=== PATIENT | male | born 1940 | race Caucasian/White ===

== ENCOUNTER 2017-09-24 11:12 | Observation (INO) ==
[2017-09-24] MEDS ORDERED: ASPIRIN 325 MG TABLET PO STA (11:34)
[2017-09-24] MEDS ORDERED: ENOXAPARIN 100 MG/ML SYRINGE SUBCUT STA (11:34)
[2017-09-24 11:45] LABS: Basophils # 0.1 10*3/uL (0.0-0.2); Basophils % 0.6 % (0.0-0.8); Eosinophils # 0.3 10*3/uL (0.0-0.87); Eosinophils % 3.5 % (0.00-10.9); Hematocrit 42.6 VOL% (42.0-52.0); Hemoglobin 14.2 GM/DL (14.0-18.0); Immature Granulocytes % 0.6 %; Immature Granulocytes Absolute 0.05 #; Mean Corpuscular HGB Conc 33.3 GM/DL (32-36); Mean Corpuscular Hemoglobin 34 PG (27-34); Mean Corpuscular Volume 101.2 FL (87-102); Mean Platelet Volume 9.6 FL (9.6-12.0); Monocytes # 0.8 10*3/uL (0.11-0.8); Monocytes % 8.9 % (1.7-12.7); Neutrophils # 5.5 10*3/uL (1.4-7.4); Neutrophils % 63.4 % (38.7-73.9); Platelet Count 228 T/CUMM (130-400); Red Blood Count 4.21 MC/CUMM (3.8-5.5); Red Cell Distribution Width 12.5 % (9.3-17.3); White Blood Count 8.7 T/CUMM (4-12)
[2017-09-24] MEDS ORDERED: ASPIRIN 325 MG TABLET ONE (12:05)
[2017-09-24] MEDS ORDERED: ENOXAPARIN 80 MG/0.8 ML SYRINGE SUBCUT ONE (12:05)
[2017-09-24 12:12] LABS: Alanine Aminotransferase 9 U/L (16-61); Albumin 3.7 G/DL (3.4-5.0); Alkaline Phosphatase 96 U/L (45-117); Aspartate Amino Transferase 8 U/L (0-37); Bilirubin,Total < 0.39 MG/DL (0.2-1.0); Calcium 8.5 MG/DL (8.5-10.1); Total Protein 6.9 G/DL (6.4-8.3)
[2017-09-24 12:13] LABS: Blood Urea Nitrogen 16 MG/DL (7-18); Glucose 93 MG/DL (74-106); Osmolality,Calculated 275.7 MOS/KG (273-304); Potassium 4.4 MMOL/L (3.5-5.1); Sodium 138 MMOL/L (136-145)
[2017-09-24] MEDS ORDERED: ONDANSETRON 4 MG/2 ML VIAL IV PRN (17:16)
[2017-09-24] MEDS ORDERED: POTASSIUM CHLORIDE RIDER 10 MEQ in PREMIX 1 EACH IV PRN (17:16)
[2017-09-24] MEDS ORDERED: MAGNESIUM SULF RIDER 4 GM in PREMIX 1 EACH IV PRN (17:16)
[2017-09-24] MEDS ORDERED: BUDESONIDE/FORMOTEROL 80-4.5 INHALER 6.9 GM INH PRN (17:16)
[2017-09-24] MEDS ORDERED: MAGNESIUM SULF RIDER 2 GM in PREMIX 1 EACH IV PRN ×2 (17:16)
[2017-09-24] MEDS: MAGNESIUM CHLORIDE 64 MG TABLET PO SCH (21:25)
[2017-09-25] MEDS ORDERED: DIAZEPAM 5 MG TABLET PO ONE (06:00)
[2017-09-25] MEDS ORDERED: diphenhydrAMINE CAP 25 MG CAPSULE PO ONE (06:00)
[2017-09-25] MEDS ORDERED: LIDOCAINE 1% 20 ML VIAL ONE (06:51)
[2017-09-25] MEDS ORDERED: AMIODARONE 200 MG TABLET PO ONE (06:59)
[2017-09-25] MEDS ORDERED: METOPROLOL TARTRATE 25 MG TABLET PO ONE (06:59)
[2017-09-25] MEDS ORDERED: PANTOPRAZOLE 40 MG TABLET PO ONE (07:00)
[2017-09-25] MEDS ORDERED: PITAVASTATIN 2 MG TABLET PO ONE (07:01)
[2017-09-25] MEDS ORDERED: LISINOPRIL 20 MG TABLET PO ONE (07:01)
[2017-09-25] MEDS ORDERED: NITROGLYCERIN DRIP 50 MG/250 ML BOTTLE IV ONE (07:20)
[2017-09-25] MEDS ORDERED: fentaNYL 100 MCG/2 ML VIAL ONE (07:20)
[2017-09-25] MEDS ORDERED: VERAPAMIL 5 MG/2 ML VIAL ONE (07:20)
[2017-09-25] MEDS ORDERED: MIDAZOLAM 2 MG/2 ML VIAL ONE (07:20)
[2017-09-25] MEDS ORDERED: ENOXAPARIN 30 MG/0.3 ML SYRINGE ONE (07:45)
[2017-09-25] MEDS ORDERED: TIROFIBAN 5,000 MCG/100 ML PREMIX IV ONE (08:02)
[2017-09-25] MEDS ORDERED: ASPIRIN 325 MG TABLET ONE (08:02)
[2017-09-25] MEDS ORDERED: diphenhydrAMINE 50 MG/1 ML VIAL ONE (08:10)
[2017-09-25] MEDS: METOPROLOL TARTRATE 25 MG TABLET PO SCH (08:12)
[2017-09-25] MEDS: PANTOPRAZOLE 40 MG TABLET PO SCH (08:12)
[2017-09-25] MEDS: LISINOPRIL 20 MG TABLET PO SCH (08:12)
[2017-09-25] MEDS ORDERED: TIROFIBAN 5,000 MCG/100 ML PREMIX IV SCH (08:12)
[2017-09-25] MEDS: FOLIC ACID 1 MG TABLET PO SCH (08:12)
[2017-09-25] MEDS: AMIODARONE 200 MG TABLET PO SCH (08:12)
[2017-09-25] MEDS: PITAVASTATIN 2 MG TABLET PO SCH (08:12)
[2017-09-25] MEDS: MAGNESIUM CHLORIDE 64 MG TABLET PO SCH ×2 (08:12→20:34)
[2017-09-25] MEDS: CYANOCOBALAMIN 500 MCG TABLET PO SCH (08:13)
[2017-09-25] MEDS: ASCORBIC ACID 500 MG TABLET PO SCH (08:13)
[2017-09-25] MEDS ORDERED: hydrALAZINE 20 MG/1 ML VIAL ONE (08:22)
[2017-09-25] MEDS ORDERED: NITROGLYCERIN SL 0.4 MG TABLET SL PRN (08:53)
[2017-09-25] MEDS ORDERED: ACETAMINOPHEN 325 MG TABLET PO PRN (08:53)
[2017-09-25] MEDS ORDERED: TICAGRELOR 90 MG TABLET ONE (08:54)
[2017-09-25] MEDS ORDERED: SODIUM CHLORIDE 0.9% 1,000 ML IV SCH (09:00)
[2017-09-25] MEDS: ASPIRIN EC 81 MG TABLET PO SCH (09:41)
[2017-09-25] MEDS: TICAGRELOR 90 MG TABLET PO SCH ×2 (09:41→20:34)
[2017-09-25 09:45] LABS: Basophils # 0.1 10*3/uL (0.0-0.2); Basophils % 0.9 % (0.0-0.8); Eosinophils # 0.4 10*3/uL (0.0-0.87); Eosinophils % 5.1 % (0.00-10.9); Hematocrit 43.2 VOL% (42.0-52.0); Hemoglobin 14.3 GM/DL (14.0-18.0); Immature Granulocytes % 0.4 %; Immature Granulocytes Absolute 0.03 #; Lymphocytes # 2.4 10*3/uL (1.4-4.0); Lymphocytes % 30.7 % (21.2-54.2); Mean Corpuscular HGB Conc 33.1 GM/DL (32-36); Mean Corpuscular Hemoglobin 33 PG (27-34); Mean Corpuscular Volume 100.9 FL (87-102); Mean Platelet Volume 9.7 FL (9.6-12.0); Monocytes # 0.7 10*3/uL (0.11-0.8); Monocytes % 8.5 % (1.7-12.7); Neutrophils # 4.3 10*3/uL (1.4-7.4); Neutrophils % 54.4 % (38.7-73.9); Platelet Count 240 T/CUMM (130-400); Red Blood Count 4.28 MC/CUMM (3.8-5.5); Red Cell Distribution Width 12.4 % (9.3-17.3); White Blood Count 7.9 T/CUMM (4-12)
[2017-09-25 09:52] LABS: PT Patient Result 10.5 SECS
[2017-09-25 09:55] LABS: Apearance,Urine CLEAR (Clear); Bilirubin,Urine Negative (Negative); Blood, Urine Negative (Negative); Glucose,Urine (UA) Negative (Negative); Ketones,Urine Negative (Negative); Mucus,Urine Occasional /LPF (Occasional); Nitrite,Urine Negative (Negative); Protein,Urine Negative; RBC,Urine 2 /HPF (0-4); Urine Color Straw (Yellow); Urine Specific Gravity 1.023 (1.001-1.035); Urine Urobilinogen < 2.0 EU/DL (0.2-1.0); WBC,Urine <1 /HPF (0-6)
[2017-09-25 10:35] LABS: Calcium 8.7 MG/DL (8.5-10.1); Potassium 4.7 MMOL/L (3.5-5.1)
[2017-09-25] MEDS ORDERED: HYDROmorphone 2 MG/1 ML VIAL IV PRN (10:38)
[2017-09-25] MEDS: amLODIPine 5 MG TABLET PO SCH (10:57)
[2017-09-26 04:56] LABS: Basophils # 0.1 10*3/uL (0.0-0.2); Basophils % 0.7 % (0.0-0.8); Eosinophils # 0.4 10*3/uL (0.0-0.87); Hematocrit 40.3 VOL% (42.0-52.0); Hemoglobin 13.5 GM/DL (14.0-18.0); Immature Granulocytes % 0.6 %; Immature Granulocytes Absolute 0.05 #; Lymphocytes # 1.9 10*3/uL (1.4-4.0); Lymphocytes % 21.8 % (21.2-54.2); Mean Corpuscular HGB Conc 33.5 GM/DL (32-36); Mean Corpuscular Hemoglobin 33 PG (27-34); Mean Corpuscular Volume 99.5 FL (87-102); Mean Platelet Volume 9.8 FL (9.6-12.0); Monocytes # 0.8 10*3/uL (0.11-0.8); Monocytes % 9.6 % (1.7-12.7); Neutrophils # 5.5 10*3/uL (1.4-7.4); Neutrophils % 62.3 % (38.7-73.9); Platelet Count 211 T/CUMM (130-400); Red Blood Count 4.05 MC/CUMM (3.8-5.5); Red Cell Distribution Width 12.4 % (9.3-17.3); White Blood Count 8.8 T/CUMM (4-12)
[2017-09-26 05:45] LABS: Blood Urea Nitrogen 13 MG/DL (7-18); Calcium 8.4 MG/DL (8.5-10.1); Cholesterol 153 MG/DL (50-200); Glucose 80 MG/DL (74-106); HDL Cholesterol 40 MG/DL (40-60); Osmolality,Calculated 271.8 MOS/KG (273-304); Potassium 4.3 MMOL/L (3.5-5.1); Risk Ratio 3.83; Sodium 137 MMOL/L (136-145); Triglycerides 116 MG/DL (2-150); Troponin I Only < 0.015 NG/ML (0.00-0.045); VLDL CHOLESTEROL 23.2 MG/DL
[2017-09-26 08:13] VITALS: BP 176/77
[2017-09-26] MEDS: LISINOPRIL 20 MG TABLET PO SCH (08:57)
[2017-09-26] MEDS: MAGNESIUM CHLORIDE 64 MG TABLET PO SCH (08:58)
[2017-09-26] MEDS: ASCORBIC ACID 500 MG TABLET PO SCH (08:58)
[2017-09-26] MEDS: CYANOCOBALAMIN 500 MCG TABLET PO SCH (08:58)
[2017-09-26] MEDS: TICAGRELOR 90 MG TABLET PO SCH (08:59)
[2017-09-26] MEDS: METOPROLOL TARTRATE 25 MG TABLET PO SCH (08:59)
[2017-09-26] MEDS: FOLIC ACID 1 MG TABLET PO SCH (08:59)
[2017-09-26] MEDS: PITAVASTATIN 2 MG TABLET PO SCH (08:59)
[2017-09-26] MEDS: PANTOPRAZOLE 40 MG TABLET PO SCH (08:59)
[2017-09-26] MEDS: AMIODARONE 200 MG TABLET PO SCH (08:59)
[2017-09-26] MEDS: amLODIPine 5 MG TABLET PO SCH (08:59)
[2017-09-26] MEDS: ASPIRIN EC 81 MG TABLET PO SCH (08:59)
== END 2017-09-26 10:45 | disposition home or self-care (01) ==
LOC: N.EDINP 11:12 → N.ED 11:12 → N.EDINP 16:30 → N.TELES 16:56
PROVIDERS: ADMIT Internal Medicine Cardiovascular Disease; ATTEND Internal Medicine Cardiovascular Disease
PROC: CLCCHCL (ICD-10-PCS; 2017-09-25 07:45)

== ENCOUNTER 2019-03-31 09:07 | Inpatient (IN) ==
[2019-03-31] MEDS ORDERED: ONDANSETRON 4 MG/2 ML VIAL IV STA (09:40)
[2019-03-31 10:24] LABS: Basophils # 0.1 10*3/uL (0.0-0.2); Basophils % 0.8 % (0.0-0.8); Eosinophils # 0.5 10*3/uL (0.0-0.87); Eosinophils % 6.3 % (0.00-10.9); Hematocrit 43.4 VOL% (42.0-52.0); Hemoglobin 13.7 GM/DL (14.0-18.0); Immature Granulocytes % 1.3 %; Immature Granulocytes Absolute 0.09 #; Lymphocytes % 27.3 % (21.2-54.2); Mean Corpuscular HGB Conc 31.6 GM/DL (32-36); Mean Corpuscular Volume 100.2 FL (87-102); Mean Platelet Volume 9.2 FL (9.6-12.0); Monocytes % 11.4 % (1.7-12.7); Neutrophils % 52.9 % (38.7-73.9); Platelet Count 185 T/CUMM (130-400); Red Blood Count 4.33 MC/CUMM (3.8-5.5); Red Cell Distribution Width 15.4 % (9.3-17.3); White Blood Count 7.2 T/CUMM (4-12)
[2019-03-31 10:51] LABS: Albumin 3.8 G/DL (3.4-5.0); Bilirubin,Total 0.8 MG/DL (0.2-1.0); Calcium 9.1 MG/DL (8.5-10.1); Osmolality,Calculated 269.2 MOS/KG (273-304); Total Protein 7.4 G/DL (6.4-8.3)
[2019-03-31] MEDS ORDERED: ACETAMINOPHEN 325 MG TABLET PO PRN (11:53)
[2019-03-31] MEDS ORDERED: ONDANSETRON 4 MG/2 ML VIAL IV PRN (11:53)
[2019-03-31 12:50] LABS: Apearance,Urine CLEAR (Clear); Bilirubin,Urine Negative (Negative); Blood, Urine Negative (Negative); Glucose,Urine (UA) Negative (Negative); Ketones,Urine 20 mg/dL (Negative); Nitrite,Urine Negative (Negative); Protein,Urine Negative; RBC,Urine 2 /HPF (0-4); Squamous Epithelial Cell,Urine Occasional /HPF (0-10); Urine Color Yellow (Yellow); Urine Urobilinogen < 2.0 EU/DL (0.2-1.0); WBC,Urine 2 /HPF (0-6)
[2019-03-31] MEDS ORDERED: LOTION (LUBRIDERM) 177 ML BOTTLE TOP PRN (16:53)
[2019-03-31] MEDS ORDERED: LOTION (KERI) 236 ML BOTTLE TOP PRN (17:30)
[2019-03-31] MEDS: PIMECROLIMUS 1% CREAM 30 GM TUBE TOP SCH (21:00)
[2019-03-31] MEDS: CLOPIDOGREL 75 MG TABLET PO SCH (23:26)
[2019-04-01 05:11] LABS: Basophils % 0.5 % (0.0-0.8); Eosinophils # 0.6 10*3/uL (0.0-0.87); Eosinophils % 9.5 % (0.00-10.9); Hematocrit 37.2 VOL% (42.0-52.0); Immature Granulocytes % 1.1 %; Immature Granulocytes Absolute 0.07 #; Lymphocytes # 2.1 10*3/uL (1.4-4.0); Lymphocytes % 32.6 % (21.2-54.2); Mean Corpuscular HGB Conc 31.5 GM/DL (32-36); Mean Corpuscular Volume 100.3 FL (87-102); Mean Platelet Volume 9.3 FL (9.6-12.0); Monocytes % 10.5 % (1.7-12.7); Neutrophils % 45.8 % (38.7-73.9); Platelet Count 169 T/CUMM (130-400); Red Blood Count 3.71 MC/CUMM (3.8-5.5); Red Cell Distribution Width 15.4 % (9.3-17.3); White Blood Count 6.4 T/CUMM (4-12)
[2019-04-01 05:14] LABS: Hemoglobin 11.7 GM/DL (14.0-18.0)
[2019-04-01 05:20] LABS: Calcium 8.5 MG/DL (8.5-10.1); Osmolality,Calculated 273.8 MOS/KG (273-304); Thyroid Stimulating Hormone 2.54 uIU/ml (0.358-3.74)
[2019-04-01] MEDS: diphenhydrAMINE CAP 25 MG CAPSULE PO PRN ×2 (09:53→20:25)
[2019-04-01] MEDS: PANTOPRAZOLE 40 MG TABLET PO SCH (09:53)
[2019-04-01] MEDS: PIMECROLIMUS 1% CREAM 30 GM TUBE TOP SCH ×2 (09:54→20:26)
[2019-04-01] MEDS: FAMOTIDINE 20 MG TABLET PO SCH ×2 (14:13→20:25)
[2019-04-01] MEDS: hydrOXYzine HCL 25 MG TABLET PO SCH ×2 (14:13→19:34)
[2019-04-01 15:43] LABS: Troponin I < 0.015 NG/ML (0.00-0.045)
[2019-04-01] MEDS: CLOPIDOGREL 75 MG TABLET PO SCH (18:47)
[2019-04-01] MEDS: BUDESONIDE 0.5 MG/2 ML NEB RESP TX SCH (19:05)
[2019-04-01 19:36] LABS: Troponin I < 0.015 NG/ML (0.00-0.045)
[2019-04-01] MEDS: MAGNESIUM CHLORIDE 64 MG TABLET PO SCH (20:25)
[2019-04-02] MEDS: hydrOXYzine HCL 25 MG TABLET PO SCH ×3 (02:44→18:36)
[2019-04-02 05:47] LABS: Basophils # 0.1 10*3/uL (0.0-0.2); Eosinophils # 0.5 10*3/uL (0.0-0.87); Eosinophils % 8.6 % (0.00-10.9); Hemoglobin 12.4 GM/DL (14.0-18.0); Immature Granulocytes % 1.6 %; Lymphocytes % 32.5 % (21.2-54.2); Mean Corpuscular HGB Conc 32.6 GM/DL (32-36); Mean Corpuscular Volume 100.3 FL (87-102); Mean Platelet Volume 9.5 FL (9.6-12.0); Monocytes % 11.2 % (1.7-12.7); Neutrophils % 45.1 % (38.7-73.9); Platelet Count 164 T/CUMM (130-400); Red Blood Count 3.79 MC/CUMM (3.8-5.5); Red Cell Distribution Width 15.3 % (9.3-17.3); White Blood Count 6.2 T/CUMM (4-12)
[2019-04-02 06:05] LABS: Calcium 8.6 MG/DL (8.5-10.1); Osmolality,Calculated 281.3 MOS/KG (273-304)
[2019-04-02] MEDS: BUDESONIDE 0.5 MG/2 ML NEB RESP TX SCH ×2 (07:27→19:40)
[2019-04-02] MEDS: FOLIC ACID 1 MG TABLET PO SCH (09:31)
[2019-04-02] MEDS: FAMOTIDINE 20 MG TABLET PO SCH ×2 (09:31→20:09)
[2019-04-02] MEDS: PANTOPRAZOLE 40 MG TABLET PO SCH (09:31)
[2019-04-02] MEDS: MAGNESIUM CHLORIDE 64 MG TABLET PO SCH ×2 (09:31→20:08)
[2019-04-02] MEDS: AMIODARONE 200 MG TABLET PO SCH (09:33)
[2019-04-02] MEDS: MULTIVITAMIN (CENTRUM) TABLET PO SCH (09:33)
[2019-04-02] MEDS: SIMVASTATIN 20 MG TABLET PO SCH (09:33)
[2019-04-02] MEDS: PIMECROLIMUS 1% CREAM 30 GM TUBE TOP SCH ×2 (09:34→20:47)
[2019-04-02] MEDS: MIDODRINE 5 MG TABLET PO SCH ×2 (12:26→20:09)
[2019-04-02] MEDS: diphenhydrAMINE CAP 25 MG CAPSULE PO PRN (16:07)
[2019-04-02] MEDS: CLOPIDOGREL 75 MG TABLET PO SCH (17:50)
[2019-04-03] MEDS: hydrOXYzine HCL 25 MG TABLET PO SCH ×2 (03:02→11:53)
[2019-04-03] MEDS ORDERED: BUDESONIDE 0.5 MG/2 ML NEB RESP TX SCH (07:00)
[2019-04-03] MEDS: diphenhydrAMINE CAP 25 MG CAPSULE PO PRN (07:29)
[2019-04-03] MEDS: FOLIC ACID 1 MG TABLET PO SCH (09:24)
[2019-04-03] MEDS: PANTOPRAZOLE 40 MG TABLET PO SCH (09:24)
[2019-04-03] MEDS: MULTIVITAMIN (CENTRUM) TABLET PO SCH (09:24)
[2019-04-03] MEDS: MIDODRINE 5 MG TABLET PO SCH (09:24)
[2019-04-03] MEDS: PIMECROLIMUS 1% CREAM 30 GM TUBE TOP SCH (09:24)
[2019-04-03] MEDS: MAGNESIUM CHLORIDE 64 MG TABLET PO SCH (09:24)
[2019-04-03] MEDS: AMIODARONE 200 MG TABLET PO SCH (09:24)
[2019-04-03] MEDS: SIMVASTATIN 20 MG TABLET PO SCH (09:24)
[2019-04-03] MEDS: FAMOTIDINE 20 MG TABLET PO SCH (09:24)
[2019-04-03 12:04] VITALS: BP 100/56
[2019-04-03] MEDS ORDERED: MIDODRINE 5 MG TABLET PO SCH (13:30)
[2019-04-03] MEDS ORDERED: CETIRIZINE 10 MG TABLET PO SCH (20:00)
== END 2019-04-03 14:57 | disposition home health service (06) | DRG 312 ==
LOC: N.EDINP 09:07 → N.ED 09:07 → N.4E 12:34
PROVIDERS: ADMIT Internal Medicine; ATTEND Internal Medicine

== ENCOUNTER 2019-12-02 15:28 | Inpatient (IN) ==
[2019-12-02] MEDS ORDERED: MAGNESIUM SULF RIDER 4 GM in PREMIX 1 EACH IV PRN (15:52)
[2019-12-02] MEDS ORDERED: POTASSIUM CHLORIDE 20 MEQ TABLET PO PRN (15:52)
[2019-12-02] MEDS ORDERED: ALUMINUM/MAGNES/SIMETH MAX STR 30 ML UDCUP PO PRN (15:52)
[2019-12-02] MEDS ORDERED: LACTULOSE 20 GM/30 ML UDCUP PO PRN (15:52)
[2019-12-02] MEDS ORDERED: MAGNESIUM SULF RIDER 2 GM in PREMIX 1 EACH IV PRN (15:52)
[2019-12-02] MEDS ORDERED: diphenhydrAMINE CAP 25 MG CAPSULE PO PRN (15:52)
[2019-12-02] MEDS ORDERED: ACETAMINOPHEN 325 MG TABLET PO PRN (15:52)
[2019-12-02] MEDS ORDERED: ZALEPLON 5 MG CAPSULE PO PRN (15:52)
[2019-12-02] MEDS ORDERED: ONDANSETRON 4 MG/2 ML VIAL IV PRN (15:52)
[2019-12-02] MEDS ORDERED: DILTIAZEM 50 MG/10 ML VIAL IV ONE (16:01)
[2019-12-02] MEDS: dilTIAZem Drip 125 MG/125 ML PREMIX IV SCH (18:00)
[2019-12-02 18:36] LABS: Basophils # 0.1 10*3/uL (0.0-0.2); Basophils % 0.5 % (0.0-0.8); Eosinophils # 0.2 10*3/uL (0.0-0.87); Eosinophils % 1.9 % (0.00-10.9); Hematocrit 37.6 VOL% (42.0-52.0); Hemoglobin 12.1 GM/DL (14.0-18.0); Immature Granulocytes % 0.8 %; Immature Granulocytes Absolute 0.09 #; Lymphocytes # 1.8 10*3/uL (1.4-4.0); Lymphocytes % 15.7 % (21.2-54.2); Mean Corpuscular HGB Conc 32.2 GM/DL (32-36); Mean Platelet Volume 9.2 FL (9.6-12.0); Monocytes % 6.7 % (1.7-12.7); Neutrophils % 74.4 % (38.7-73.9); Platelet Count 197 T/CUMM (130-400); Red Blood Count 3.58 MC/CUMM (3.8-5.5); Red Cell Distribution Width 13.8 % (9.3-17.3); White Blood Count 11.2 T/CUMM (4-12)
[2019-12-02 19:02] LABS: Troponin I < 0.015 NG/ML (0.00-0.045)
[2019-12-02 19:09] LABS: Albumin 3.1 G/DL (3.4-5.0); Bilirubin,Total 0.5 MG/DL (0.2-1.0); Calcium 8.6 MG/DL (8.5-10.1); Thyroid Stimulating Hormone 2.25 uIU/ml (0.358-3.74); Total Protein 6.9 G/DL (6.4-8.3)
[2019-12-02] MEDS ORDERED: ENOXAPARIN 40 MG/0.4 ML SYRINGE SUBCUT SCH (21:00)
[2019-12-03 01:00] LABS: Troponin I < 0.015 NG/ML (0.00-0.045)
[2019-12-03 06:38] LABS: Risk Ratio 2.73; VLDL CHOLESTEROL 14.2 MG/DL
[2019-12-03] MEDS ORDERED: NON-FORMULARY MEDICATION (Diphenhydramine Hcl [Benadryl Allergy] 25 MG) PO PRN (08:28)
[2019-12-03] MEDS ORDERED: GABAPENTIN 300 MG CAPSULE PO PRN (08:28)
[2019-12-03] MEDS ORDERED: ALBUTEROL/IPRATROPIUM 3 ML NEB RESP TX PRN (08:28)
[2019-12-03] MEDS ORDERED: NITROGLYCERIN SL 0.4 MG TABLET SL PRN (08:28)
[2019-12-03] MEDS: ASPIRIN EC 81 MG TABLET PO SCH (08:58)
[2019-12-03] MEDS: METOPROLOL TARTRATE 50 MG TABLET PO SCH ×2 (08:59→21:55)
[2019-12-03] MEDS: CETIRIZINE 10 MG TABLET PO SCH (08:59)
[2019-12-03] MEDS: AMIODARONE 200 MG TABLET PO SCH (08:59)
[2019-12-03] MEDS: FOLIC ACID 1 MG TABLET PO SCH (08:59)
[2019-12-03] MEDS ORDERED: APIXABAN 5 MG TABLET PO SCH (09:00)
[2019-12-03] MEDS: PANTOPRAZOLE 40 MG TABLET PO SCH (09:01)
[2019-12-03] MEDS: MAGNESIUM CHLORIDE 64 MG TABLET PO SCH ×2 (09:01→21:54)
[2019-12-03] MEDS: dilTIAZem Drip 125 MG/125 ML PREMIX IV SCH ×2 (09:02→21:55)
[2019-12-03 09:49] LABS: Troponin I < 0.015 NG/ML (0.00-0.045)
[2019-12-03] MEDS: BUDESONIDE 0.5 MG/2 ML NEB RESP TX SCH ×2 (09:51→19:30)
[2019-12-03 12:56] LABS: Apearance,Urine CLEAR (Clear); Bilirubin,Urine Negative (Negative); Blood, Urine Negative (Negative); Glucose,Urine (UA) Negative (Negative); Ketones,Urine 5 mg/dL (Negative); Mucus,Urine Occasional /LPF (Occasional); Nitrite,Urine Negative (Negative); Protein,Urine Negative; RBC,Urine 2 /HPF (0-4); Squamous Epithelial Cell,Urine Occasional /HPF (0-10); Urine Color Yellow (Yellow); Urine Specific Gravity 1.018 (1.001-1.035); WBC,Urine 9 /HPF (0-6)
[2019-12-04 05:02] LABS: Basophils % 0.4 % (0.0-0.8); Eosinophils # 0.5 10*3/uL (0.0-0.87); Eosinophils % 7.2 % (0.00-10.9); Hematocrit 32.8 VOL% (42.0-52.0); Hemoglobin 10.7 GM/DL (14.0-18.0); Immature Granulocytes % 0.6 %; Immature Granulocytes Absolute 0.04 #; Lymphocytes # 1.6 10*3/uL (1.4-4.0); Lymphocytes % 23.7 % (21.2-54.2); Mean Corpuscular HGB Conc 32.6 GM/DL (32-36); Mean Corpuscular Volume 103.8 FL (87-102); Mean Platelet Volume 9.2 FL (9.6-12.0); Monocytes % 11.3 % (1.7-12.7); Neutrophils % 56.8 % (38.7-73.9); Platelet Count 157 T/CUMM (130-400); Red Blood Count 3.16 MC/CUMM (3.8-5.5); Red Cell Distribution Width 14.3 % (9.3-17.3); White Blood Count 6.9 T/CUMM (4-12)
[2019-12-04 05:24] LABS: Calcium 8.5 MG/DL (8.5-10.1)
[2019-12-04] MEDS: BUDESONIDE 0.5 MG/2 ML NEB RESP TX SCH ×2 (07:28→19:28)
[2019-12-04] MEDS: METOPROLOL TARTRATE 50 MG TABLET PO SCH ×2 (08:56→21:29)
[2019-12-04] MEDS: AMIODARONE 200 MG TABLET PO SCH (08:56)
[2019-12-04] MEDS: DILTIAZEM CD 180 MG CAPSULE PO SCH ×2 (08:56→21:29)
[2019-12-04] MEDS: FOLIC ACID 1 MG TABLET PO SCH (08:58)
[2019-12-04] MEDS: MAGNESIUM CHLORIDE 64 MG TABLET PO SCH ×2 (08:58→21:28)
[2019-12-04] MEDS: PANTOPRAZOLE 40 MG TABLET PO SCH (08:58)
[2019-12-04] MEDS: ASPIRIN EC 81 MG TABLET PO SCH (08:58)
[2019-12-04] MEDS: CETIRIZINE 10 MG TABLET PO SCH (08:58)
[2019-12-04] MEDS ORDERED: fentaNYL 100 MCG/2 ML VIAL ONE (10:44)
[2019-12-04] MEDS ORDERED: MIDAZOLAM 2 MG/2 ML VIAL ONE (10:44)
[2019-12-04] MEDS ORDERED: LIDOCAINE 1% 20 ML VIAL ONE (10:44)
[2019-12-04] MEDS ORDERED: HEPARIN/NACL 0.9% 2 UNITS/ML 1,000 ML IV ONE (10:44)
[2019-12-04] MEDS ORDERED: ceFAZolin 1,000 MG VIAL ONE (11:07)
[2019-12-04] MEDS ORDERED: HEPARIN 5,000 UNIT/1 ML VIAL ONE (11:32)
[2019-12-04] MEDS ORDERED: diphenhydrAMINE 50 MG/1 ML VIAL ONE (11:40)
[2019-12-04] MEDS ORDERED: HEPARIN/NACL 0.9% 2 UNITS/ML 500 ML IV ONE ×2 (11:40→12:11)
[2019-12-04] MEDS ORDERED: LORazepam 2 MG/1 ML VIAL IV PRN (14:45)
[2019-12-05 06:31] LABS: Basophils # 0.1 10*3/uL (0.0-0.2); Basophils % 0.7 % (0.0-0.8); Eosinophils # 0.5 10*3/uL (0.0-0.87); Eosinophils % 5.9 % (0.00-10.9); Hematocrit 31.7 VOL% (42.0-52.0); Hemoglobin 10.6 GM/DL (14.0-18.0); Immature Granulocytes % 0.4 %; Immature Granulocytes Absolute 0.03 #; Lymphocytes # 1.6 10*3/uL (1.4-4.0); Lymphocytes % 20.9 % (21.2-54.2); Mean Corpuscular HGB Conc 33.4 GM/DL (32-36); Mean Corpuscular Volume 102.3 FL (87-102); Mean Platelet Volume 9.5 FL (9.6-12.0); Monocytes % 9.4 % (1.7-12.7); Neutrophils % 62.7 % (38.7-73.9); Platelet Count 166 T/CUMM (130-400); Red Cell Distribution Width 13.9 % (9.3-17.3); White Blood Count 7.7 T/CUMM (4-12)
[2019-12-05 06:56] LABS: Calcium 8.2 MG/DL (8.5-10.1); Osmolality,Calculated 271.1 MOS/KG (273-304)
[2019-12-05] MEDS: BUDESONIDE 0.5 MG/2 ML NEB RESP TX SCH (07:02)
[2019-12-05 08:05] VITALS: BP 132/86
[2019-12-05] MEDS: PANTOPRAZOLE 40 MG TABLET PO SCH (08:56)
[2019-12-05] MEDS: MAGNESIUM CHLORIDE 64 MG TABLET PO SCH (08:56)
[2019-12-05] MEDS: METOPROLOL TARTRATE 50 MG TABLET PO SCH (08:56)
[2019-12-05] MEDS: DILTIAZEM CD 180 MG CAPSULE PO SCH (08:56)
[2019-12-05] MEDS: CETIRIZINE 10 MG TABLET PO SCH (08:56)
[2019-12-05] MEDS: FOLIC ACID 1 MG TABLET PO SCH (08:56)
[2019-12-05] MEDS: ASPIRIN EC 81 MG TABLET PO SCH (08:56)
[2019-12-05] MEDS ORDERED: APIXABAN 5 MG TABLET PO SCH (09:00)
== END 2019-12-05 11:10 | disposition home or self-care (01) | DRG 229 ==
LOC: N.TELES 16:51
PROVIDERS: ADMIT Internal Medicine Cardiovascular Disease; ATTEND Internal Medicine Cardiovascular Disease
PROC: CLMICRA (2019-12-04 10:45)

== ENCOUNTER 2020-06-21 06:45 | Inpatient (IN) ==
[2020-06-21 07:36] LABS: Basophils % 0.5 % (0.0-0.8); Eosinophils # 0.1 10*3/uL (0.0-0.87); Eosinophils % 0.8 % (0.00-10.9); Hematocrit 38.3 VOL% (42.0-52.0); Hemoglobin 12.1 GM/DL (14.0-18.0); Immature Granulocytes % 0.5 %; Immature Granulocytes Absolute 0.04 #; Lymphocytes # 1.6 10*3/uL (1.4-4.0); Lymphocytes % 18.3 % (21.2-54.2); Mean Corpuscular HGB Conc 31.6 GM/DL (32-36); Mean Platelet Volume 9.2 FL (9.6-12.0); Monocytes % 9.5 % (1.7-12.7); NRBC # 0.02 10*3/uL; Neutrophils % 70.4 % (38.7-73.9); Platelet Count 217 T/CUMM (130-400); Red Blood Count 3.91 MC/CUMM (3.8-5.5); Red Cell Distribution Width 15.8 % (9.3-17.3); White Blood Count 8.7 T/CUMM (4-12)
[2020-06-21 07:57] LABS: Albumin 3.3 G/DL (3.4-5.0); Bilirubin,Total 1.3 MG/DL (0.2-1.0); Osmolality,Calculated 281.4 MOS/KG (273-304); Total Protein 7.7 G/DL (6.4-8.3)
[2020-06-21] MEDS ORDERED: LEVOFLOXACIN INJ 500 MG in PREMIX 1 EACH IV STA (09:20)
[2020-06-21] MEDS ORDERED: ONDANSETRON 4 MG/2 ML VIAL IV PRN (09:50)
[2020-06-21] MEDS ORDERED: DEXTROSE 50% 25 GM/50 ML VIAL IV PRN (09:50)
[2020-06-21] MEDS ORDERED: GLUCAGON 1 MG VIAL IM PRN (09:50)
[2020-06-21] MEDS ORDERED: DOCUSATE SODIUM 100 MG CAPSULE PO PRN (09:50)
[2020-06-21] MEDS ORDERED: FUROSEMIDE 40 MG/4 ML VIAL IV ONE (09:50)
[2020-06-21] MEDS: ALBUTEROL/IPRATROPIUM 3 ML NEB RESP TX SCH ×2 (13:30→19:30)
[2020-06-21] MEDS ORDERED: NITROGLYCERIN SL 0.4 MG TABLET SL PRN (13:34)
[2020-06-21] MEDS ORDERED: hydrOXYzine HCL 25 MG TABLET PO PRN (13:34)
[2020-06-21] MEDS: cefTRIAXone 1,000 MG in SYRINGE 1 EACH IV SCH (13:59)
[2020-06-21 14:22] LABS: Allen Test Positive
[2020-06-21 14:24] LABS: ABG Base Excess 6.5 MMOL/L (-2.5-2.5); ABG HCO3 30.3 MMOL/L (20-26); ABG Oxygen Saturation 96.3 % (95-100); ABG PCO2 40.6 MM HG (35-48); ABG PH 7.483 (7.35-7.45); ABG PO2 84.9 MM HG (80-95); ABG TCO2 27.1 MMOL/L (23-27)
[2020-06-21] MEDS: BUDESONIDE 0.5 MG/2 ML NEB RESP TX SCH (19:30)
[2020-06-21] MEDS ORDERED: FUROSEMIDE 40 MG/4 ML VIAL IV SCH (21:00)
[2020-06-21] MEDS: ACETAMINOPHEN 325 MG TABLET PO PRN (21:11)
[2020-06-21] MEDS: GABAPENTIN 300 MG CAPSULE PO PRN (21:11)
[2020-06-21] MEDS: APIXABAN 5 MG TABLET PO SCH (21:12)
[2020-06-22] MEDS: ALBUTEROL/IPRATROPIUM 3 ML NEB RESP TX SCH ×4 (00:11→20:10)
[2020-06-22 04:13] LABS: Basophils % 0.3 % (0.0-0.8); Eosinophils # 0.3 10*3/uL (0.0-0.87); Eosinophils % 4.2 % (0.00-10.9); Hematocrit 31.5 VOL% (42.0-52.0); Hemoglobin 10.3 GM/DL (14.0-18.0); Immature Granulocytes % 0.3 %; Immature Granulocytes Absolute 0.02 #; Lymphocytes # 1.7 10*3/uL (1.4-4.0); Lymphocytes % 27.8 % (21.2-54.2); Mean Corpuscular HGB Conc 32.7 GM/DL (32-36); Mean Corpuscular Volume 95.7 FL (87-102); Mean Platelet Volume 9.4 FL (9.6-12.0); Monocytes % 13.2 % (1.7-12.7); Neutrophils % 54.2 % (38.7-73.9); Platelet Count 168 T/CUMM (130-400); Red Blood Count 3.29 MC/CUMM (3.8-5.5); Red Cell Distribution Width 15.7 % (9.3-17.3); White Blood Count 6.2 T/CUMM (4-12)
[2020-06-22 04:36] LABS: Alanine Aminotransferase < 9 U/L (16-61); Albumin 2.7 G/DL (3.4-5.0); Alkaline Phosphatase 93 U/L (45-117); Aspartate Amino Transferase 17 U/L (0-37); Blood Urea Nitrogen 19 MG/DL (7-18); Calcium 8.3 MG/DL (8.5-10.1); Estimated Glom Filtration Rate 49 ML/MIN; Glucose 98 MG/DL (74-106); Osmolality,Calculated 278.5 MOS/KG (273-304); Total Protein 6.3 G/DL (6.4-8.3)
[2020-06-22] MEDS: BUDESONIDE 0.5 MG/2 ML NEB RESP TX SCH ×2 (07:23→20:10)
[2020-06-22] MEDS ORDERED: POTASSIUM CHLORIDE 20 MEQ TABLET PO ONE (07:55)
[2020-06-22] MEDS ORDERED: FUROSEMIDE 40 MG/4 ML VIAL IV SCH (08:00)
[2020-06-22] MEDS: SIMVASTATIN 20 MG TABLET PO SCH (08:36)
[2020-06-22] MEDS: FOLIC ACID 1 MG TABLET PO SCH (08:36)
[2020-06-22] MEDS: MAGNESIUM CHLORIDE 64 MG TABLET PO SCH (08:36)
[2020-06-22] MEDS: APIXABAN 5 MG TABLET PO SCH ×2 (08:36→20:30)
[2020-06-22] MEDS: AZITHROMYCIN 250 MG TABLET PO SCH (08:36)
[2020-06-22] MEDS: CETIRIZINE 10 MG TABLET PO SCH (08:36)
[2020-06-22] MEDS: AMIODARONE 200 MG TABLET PO SCH (08:36)
[2020-06-22] MEDS: PANTOPRAZOLE 40 MG TABLET PO SCH (08:36)
[2020-06-22] MEDS ORDERED: LEVOFLOXACIN INJ 750 MG in PREMIX 1 EACH IV SCH (10:00)
[2020-06-22] MEDS: cefTRIAXone 1,000 MG in SYRINGE 1 EACH IV SCH (14:01)
[2020-06-22] MEDS: ACETAMINOPHEN 325 MG TABLET PO PRN (20:30)
[2020-06-22] MEDS: GABAPENTIN 300 MG CAPSULE PO PRN (20:31)
[2020-06-23] MEDS: ALBUTEROL/IPRATROPIUM 3 ML NEB RESP TX SCH ×4 (00:20→21:25)
[2020-06-23 06:40] LABS: Basophils % 0.4 % (0.0-0.8); Eosinophils # 0.5 10*3/uL (0.0-0.87); Eosinophils % 7.6 % (0.00-10.9); Hemoglobin 10.6 GM/DL (14.0-18.0); Immature Granulocytes % 0.3 %; Immature Granulocytes Absolute 0.02 #; Lymphocytes # 1.3 10*3/uL (1.4-4.0); Lymphocytes % 19.9 % (21.2-54.2); Mean Corpuscular HGB Conc 32.1 GM/DL (32-36); Mean Corpuscular Volume 96.2 FL (87-102); Mean Platelet Volume 9.7 FL (9.6-12.0); Neutrophils % 61.8 % (38.7-73.9); Platelet Count 174 T/CUMM (130-400); Red Blood Count 3.43 MC/CUMM (3.8-5.5); Red Cell Distribution Width 15.7 % (9.3-17.3); White Blood Count 6.7 T/CUMM (4-12)
[2020-06-23 06:41] LABS: Calcium 8.4 MG/DL (8.5-10.1); Osmolality,Calculated 279.4 MOS/KG (273-304)
[2020-06-23] MEDS: BUDESONIDE 0.5 MG/2 ML NEB RESP TX SCH ×2 (07:08→21:25)
[2020-06-23] MEDS ORDERED: POTASSIUM CHLORIDE 20 MEQ TABLET PO ONE ×2 (08:08→13:35)
[2020-06-23] MEDS ORDERED: MAGNESIUM SULF RIDER 2 GM in PREMIX 1 EACH IV PRN (08:09)
[2020-06-23] MEDS ORDERED: MAGNESIUM SULF RIDER 4 GM in PREMIX 1 EACH IV PRN (08:09)
[2020-06-23] MEDS ORDERED: FUROSEMIDE 40 MG/4 ML VIAL IV SCH (09:00)
[2020-06-23] MEDS: AZITHROMYCIN 250 MG TABLET PO SCH (09:29)
[2020-06-23] MEDS: APIXABAN 5 MG TABLET PO SCH ×2 (09:29→21:08)
[2020-06-23] MEDS: FOLIC ACID 1 MG TABLET PO SCH (09:29)
[2020-06-23] MEDS: MAGNESIUM CHLORIDE 64 MG TABLET PO SCH (09:29)
[2020-06-23] MEDS: CETIRIZINE 10 MG TABLET PO SCH (09:30)
[2020-06-23] MEDS: PANTOPRAZOLE 40 MG TABLET PO SCH (09:30)
[2020-06-23] MEDS: SIMVASTATIN 20 MG TABLET PO SCH (09:30)
[2020-06-23] MEDS: AMIODARONE 200 MG TABLET PO SCH (09:30)
[2020-06-23] MEDS: ACETAMINOPHEN 325 MG TABLET PO PRN ×2 (11:19→21:10)
[2020-06-23] MEDS: ASPIRIN EC 81 MG TABLET PO SCH (14:18)
[2020-06-23] MEDS: cefTRIAXone 1,000 MG in SYRINGE 1 EACH IV SCH (14:20)
[2020-06-23] MEDS ORDERED: SODIUM CHLORIDE 0.9% 500 ML IV ONE (16:09)
[2020-06-23] MEDS: GABAPENTIN 300 MG CAPSULE PO PRN (21:09)
[2020-06-23] MEDS: METOPROLOL TARTRATE 25 MG TABLET PO SCH (21:09)
[2020-06-24] MEDS: ALBUTEROL/IPRATROPIUM 3 ML NEB RESP TX SCH ×4 (01:00→20:09)
[2020-06-24 05:35] LABS: Basophils % 0.6 % (0.0-0.8); Eosinophils # 0.6 10*3/uL (0.0-0.87); Eosinophils % 8.8 % (0.00-10.9); Hematocrit 33.4 VOL% (42.0-52.0); Hemoglobin 10.2 GM/DL (14.0-18.0); Immature Granulocytes % 0.4 %; Immature Granulocytes Absolute 0.03 #; Lymphocytes # 1.6 10*3/uL (1.4-4.0); Lymphocytes % 23.2 % (21.2-54.2); Mean Corpuscular HGB Conc 30.5 GM/DL (32-36); Mean Platelet Volume 9.8 FL (9.6-12.0); Monocytes % 11.2 % (1.7-12.7); Neutrophils % 55.8 % (38.7-73.9); Platelet Count 192 T/CUMM (130-400); Red Blood Count 3.34 MC/CUMM (3.8-5.5); Red Cell Distribution Width 15.9 % (9.3-17.3); White Blood Count 6.8 T/CUMM (4-12)
[2020-06-24 05:57] LABS: Calcium 8.4 MG/DL (8.5-10.1); Osmolality,Calculated 280.4 MOS/KG (273-304)
[2020-06-24] MEDS: BUDESONIDE 0.5 MG/2 ML NEB RESP TX SCH ×2 (07:06→20:09)
[2020-06-24] MEDS: ASPIRIN EC 81 MG TABLET PO SCH (10:08)
[2020-06-24] MEDS: CETIRIZINE 10 MG TABLET PO SCH (10:09)
[2020-06-24] MEDS: AZITHROMYCIN 250 MG TABLET PO SCH (10:09)
[2020-06-24] MEDS: AMIODARONE 200 MG TABLET PO SCH (10:09)
[2020-06-24] MEDS: ISOSORBIDE MONONITRATE 30 MG TABLET PO SCH (10:09)
[2020-06-24] MEDS: PANTOPRAZOLE 40 MG TABLET PO SCH (10:09)
[2020-06-24] MEDS: METOPROLOL TARTRATE 25 MG TABLET PO SCH ×2 (10:09→20:29)
[2020-06-24] MEDS: SIMVASTATIN 20 MG TABLET PO SCH (10:09)
[2020-06-24] MEDS: MAGNESIUM CHLORIDE 64 MG TABLET PO SCH (10:09)
[2020-06-24] MEDS: APIXABAN 5 MG TABLET PO SCH ×2 (10:17→20:29)
[2020-06-24] MEDS: FUROSEMIDE 40 MG TABLET PO SCH (10:17)
[2020-06-24] MEDS: FOLIC ACID 1 MG TABLET PO SCH (10:17)
[2020-06-24] MEDS: cefTRIAXone 1,000 MG in SYRINGE 1 EACH IV SCH (12:37)
[2020-06-24] MEDS: GABAPENTIN 300 MG CAPSULE PO PRN (20:29)
[2020-06-24] MEDS: ACETAMINOPHEN 325 MG TABLET PO PRN (20:29)
[2020-06-25] MEDS: ALBUTEROL/IPRATROPIUM 3 ML NEB RESP TX SCH (02:10)
[2020-06-25 05:46] LABS: Basophils % 0.5 % (0.0-0.8); Eosinophils # 0.7 10*3/uL (0.0-0.87); Eosinophils % 8.9 % (0.00-10.9); Hematocrit 33.3 VOL% (42.0-52.0); Hemoglobin 10.4 GM/DL (14.0-18.0); Immature Granulocytes % 0.4 %; Immature Granulocytes Absolute 0.03 #; Lymphocytes # 1.6 10*3/uL (1.4-4.0); Lymphocytes % 21.9 % (21.2-54.2); Mean Corpuscular HGB Conc 31.2 GM/DL (32-36); Mean Corpuscular Volume 99.7 FL (87-102); Mean Platelet Volume 9.8 FL (9.6-12.0); Monocytes % 12.6 % (1.7-12.7); Neutrophils % 55.7 % (38.7-73.9); Platelet Count 203 T/CUMM (130-400); Red Blood Count 3.34 MC/CUMM (3.8-5.5); Red Cell Distribution Width 15.6 % (9.3-17.3); White Blood Count 7.3 T/CUMM (4-12)
[2020-06-25 06:15] LABS: Calcium 8.7 MG/DL (8.5-10.1); Osmolality,Calculated 278.5 MOS/KG (273-304)
[2020-06-25] MEDS: APIXABAN 5 MG TABLET PO SCH (09:47)
[2020-06-25] MEDS: ASPIRIN EC 81 MG TABLET PO SCH (09:47)
[2020-06-25] MEDS: AZITHROMYCIN 250 MG TABLET PO SCH (09:47)
[2020-06-25] MEDS: MAGNESIUM CHLORIDE 64 MG TABLET PO SCH (09:47)
[2020-06-25] MEDS: METOPROLOL TARTRATE 25 MG TABLET PO SCH (09:48)
[2020-06-25] MEDS: FUROSEMIDE 40 MG TABLET PO SCH (09:48)
[2020-06-25] MEDS: CETIRIZINE 10 MG TABLET PO SCH (09:48)
[2020-06-25] MEDS: SIMVASTATIN 20 MG TABLET PO SCH (09:48)
[2020-06-25] MEDS: ISOSORBIDE MONONITRATE 30 MG TABLET PO SCH (09:48)
[2020-06-25] MEDS: FOLIC ACID 1 MG TABLET PO SCH (09:48)
[2020-06-25] MEDS: AMIODARONE 200 MG TABLET PO SCH (09:48)
[2020-06-25] MEDS: PANTOPRAZOLE 40 MG TABLET PO SCH (09:48)
[2020-06-25 11:23] VITALS: BP 99/62
== END 2020-06-25 12:28 | disposition home health service (06) | DRG 291 ==
LOC: N.EDINP 06:45 → N.ED 06:45 → N.EDINP 12:13 → N.4E 12:15
PROVIDERS: ADMIT Family Medicine; ATTEND Family Medicine

== ENCOUNTER 2021-06-20 09:14 | Observation (INO) ==
[2021-06-20] MEDS ORDERED: ONDANSETRON 4 MG/2 ML VIAL IV STA (09:26)
[2021-06-20] MEDS ORDERED: HYDROmorphone 2 MG/1 ML VIAL IV STA (09:26)
[2021-06-20 10:19] LABS: Alanine Aminotransferase 14 U/L (16-61); Albumin 3.6 G/DL (3.4-5.0); Alkaline Phosphatase 108 U/L (45-117); Aspartate Amino Transferase 13 U/L (0-37); Blood Urea Nitrogen 24 MG/DL (7-18); Carbon Dioxide 27 MMOL/L (21-32); Estimated Glom Filtration Rate 56 ML/MIN; Glucose 128 MG/DL (74-106); Osmolality,Calculated 282.5 MOS/KG (273-304); Sodium 139 MMOL/L (136-145); Total Protein 7.5 G/DL (6.4-8.2)
[2021-06-20 10:21] LABS: Basophils # 0.1 10*3/uL (0.0-0.2); Basophils % 0.6 % (0.0-0.8); Eosinophils # 0.5 10*3/uL (0.0-0.87); Eosinophils % 5.7 % (0.00-10.9); Hematocrit 29.4 VOL% (42.0-52.0); Immature Granulocytes % 0.5 %; Immature Granulocytes Absolute 0.04 #; Lymphocytes # 1.4 10*3/uL (1.4-4.0); Lymphocytes % 15.7 % (21.2-54.2); Mean Corpuscular HGB Conc 27.2 GM/DL (32-36); Mean Corpuscular Volume 78.2 FL (87-102); Mean Platelet Volume 9.2 FL (9.6-12.0); Monocytes % 7.2 % (1.7-12.7); Neutrophils % 70.3 % (38.7-73.9); Platelet Count 206 T/CUMM (130-400); Red Blood Count 3.76 MC/CUMM (3.8-5.5); Red Cell Distribution Width 18.6 % (9.3-17.3); White Blood Count 8.6 T/CUMM (4-12)
[2021-06-20] MEDS ORDERED: FUROSEMIDE 40 MG/4 ML VIAL IV STA (11:58)
[2021-06-20] MEDS ORDERED: DEXTROSE 50% 25 GM/50 ML VIAL IV PRN (12:43)
[2021-06-20] MEDS ORDERED: GLUCAGON 1 MG VIAL IM PRN (12:43)
[2021-06-20] MEDS ORDERED: ONDANSETRON 4 MG/2 ML VIAL IV PRN (12:44)
[2021-06-20] MEDS ORDERED: ACETAMINOPHEN 325 MG TABLET PO PRN (12:44)
[2021-06-20] MEDS ORDERED: ENOXAPARIN 40 MG/0.4 ML SYRINGE SUBCUT SCH (13:00)
[2021-06-20] MEDS: ALBUTEROL/IPRATROPIUM 3 ML NEB RESP TX SCH ×2 (13:12→19:42)
[2021-06-20 13:38] LABS: Bilirubin,Urine Negative (Negative); Blood, Urine Negative (Negative); Glucose,Urine (UA) Negative (Negative); Ketones,Urine Negative (Negative); Nitrite,Urine Negative (Negative); Protein,Urine Negative; RBC,Urine 2 /HPF (0-4); Urine Appearance CLEAR (Clear); Urine Color Yellow (Yellow); Urine Specific Gravity 1.035 (1.001-1.035); Urine Urobilinogen < 2.0 EU/DL (0.2-1.0)
[2021-06-20] MEDS ORDERED: AZITHROMYCIN INJ 500 MG in SODIUM CHLORIDE 0.9% 250 ML IV STA (13:40)
[2021-06-20] MEDS: methylPREDNISolone SOD SUC 40 MG/1 ML VIAL IV SCH ×2 (14:51→21:03)
[2021-06-20] MEDS: POLYETHYLENE GLYCOL POWDER 17 GM PACK PO SCH (15:01)
[2021-06-20] MEDS: DOCUSATE SODIUM 100 MG CAPSULE PO SCH (20:52)
[2021-06-20] MEDS: GABAPENTIN 300 MG CAPSULE PO SCH (20:52)
[2021-06-20] MEDS ORDERED: SIMVASTATIN 20 MG TABLET PO SCH (21:00)
[2021-06-21] MEDS: ALBUTEROL/IPRATROPIUM 3 ML NEB RESP TX SCH ×2 (00:35→07:12)
[2021-06-21] MEDS: methylPREDNISolone SOD SUC 40 MG/1 ML VIAL IV SCH (05:34)
[2021-06-21 05:48] LABS: Hematocrit 27.1 VOL% (42.0-52.0); Hemoglobin 7.7 GM/DL (14.0-18.0); Immature Granulocytes % 0.5 %; Immature Granulocytes Absolute 0.03 #; Lymphocytes # 0.5 10*3/uL (1.4-4.0); Lymphocytes % 8.9 % (21.2-54.2); Mean Corpuscular HGB Conc 28.4 GM/DL (32-36); Mean Corpuscular Volume 77.2 FL (87-102); Mean Platelet Volume 9.4 FL (9.6-12.0); Monocytes % 1.1 % (1.7-12.7); NRBC # 0.02 10*3/uL; Neutrophils % 89.5 % (38.7-73.9); Platelet Count 204 T/CUMM (130-400); Red Blood Count 3.51 MC/CUMM (3.8-5.5); Red Cell Distribution Width 18.6 % (9.3-17.3); White Blood Count 5.6 T/CUMM (4-12)
[2021-06-21 05:57] LABS: Albumin 3.4 G/DL (3.4-5.0); Bilirubin,Total 1.2 MG/DL (0.20-1.00); Calcium 8.9 MG/DL (8.5-10.1); Osmolality,Calculated 282.7 MOS/KG (273-304); Potassium 4.8 MMOL/L (3.5-5.1); Total Protein 7.6 G/DL (6.4-8.2)
[2021-06-21 05:58] LABS: % Iron Saturation 3.6 % (18-50); Ferritin 9.7 ng/mL (26-388)
[2021-06-21 07:48] VITALS: BP 115/59
[2021-06-21] MEDS ORDERED: ASPIRIN EC 81 MG TABLET PO SCH (09:00)
[2021-06-21] MEDS ORDERED: FUROSEMIDE 40 MG/4 ML VIAL IV SCH (09:00)
[2021-06-21] MEDS ORDERED: MULTIVITAMIN (CENTRUM) TABLET PO SCH (09:00)
[2021-06-21] MEDS ORDERED: AZITHROMYCIN 250 MG TABLET PO SCH (09:00)
[2021-06-21] MEDS: POLYETHYLENE GLYCOL POWDER 17 GM PACK PO SCH (09:37)
[2021-06-21] MEDS: GABAPENTIN 300 MG CAPSULE PO SCH (09:37)
[2021-06-21] MEDS: DOCUSATE SODIUM 100 MG CAPSULE PO SCH (09:37)
== END 2021-06-21 11:19 | disposition home health service (06) ==
LOC: EDUNIT# → EDBD → N.ED 09:14 → N.EDINP 09:14 → N.5E 16:48
PROVIDERS: ADMIT Internal Medicine; ATTEND Internal Medicine